=== PATIENT | male | born 1985 | race Caucasian/White ===

== ENCOUNTER 2024-11-18 10:09 | Emergency (ER) | payer MEDICAID, SELFPAY ==
[~2024-11-18] VITALS: Ht 170.2 cm; Wt 60.6 kg
[2024-11-18] MEDS: BENZONATATE 100MG CAPSULE PO ONE (12:00)
[2024-11-18] MEDS ORDERED: LIDO15SO8 PO (13:47)
[2024-11-18] MEDS ORDERED: ALBU8.5H INH (13:47)
[2024-11-18] MEDS ORDERED: DOXY-441 PO (13:47)
[2024-11-18] MEDS: DOXYCYCLINE HYCLATE 100MG TABLET PO ONE (13:53)
[2024-11-18 14:06] VITALS: BP 107/57; TEMP 100.6; O2SAT 98
== END 2024-11-18 14:08 | disposition home or self-care (01) ==
LOC: M ED 10:09
DX: J18.1 Lobar pneumonia, unspecified organism (principal); Z79.52 Long term (current) use of systemic steroids; Z79.899 Other long term (current) drug therapy